=== PATIENT | female | born 1995 | race Caucasian/White ===

== ENCOUNTER → 2017-01-18 | Outpatient (CLI) | payer BC ==
[~2017-01-18] MED LIST: GADAVIST IV PRN
--- NOTE | 2017-01-18 09:23 | DIAGNOSTIC IMAGING REPORT ---
MRI right wrist RIGHT UPPER EXT JOINT COMBO CLINICAL HISTORY: ARTHRITIS Right pain TECHNIQUE: Multiaxial MRI acquisition COMPARISON STUDY: None FINDINGS: Signal characteristics the osseous structures are unremarkable. Articular services appear generally intact. Several small microcysts of the carpal bones are present. There is trace amount of fluid at the radial ulnar articulation indicating that of a focal tear lateral margin triangular fibrocartilage. There is trace amount of fluid surrounding the carpal compartments which may indicate a secondary basis tear of the interosseous ligaments. All major ligamentous and tendinous structures otherwise appear intact. Muscular structures appear unremarkable. IMPRESSION: 1. Secondary findings consistent with focal tear lateral margin triangular fibrocartilage 2. Trace amount of fluid between the carpal rows suggesting either reactive fluid versus secondary evidence for interosseous ligament disruption. 3. Minimal cystic degenerative change of the carpal bones. Electronically signed by: Malcolm Lambert M.D. 01/18/2017 9:21 AM Dictated Date/Time: 01/18/2017 9:14 AM
== END | disposition home or self-care (01) ==
LOC: C.MRI 08:02
PROVIDERS: ATTEND Pediatrics Pediatric Rheumatology
DX: L40.54 Psoriatic juvenile arthropathy (principal)